=== PATIENT | female | born 1990 | race Caucasian/White ===

== ENCOUNTER 2016-07-28 06:51 | Inpatient (IN) | payer BC ==
[2016-07-28] MEDS ORDERED: Acetaminophen 325 MG Tab PO PRN (08:13)
[2016-07-28] MEDS ORDERED: fentaNYL 100 MCG/2 ML SDV IVPUSH PRN (08:13)
[2016-07-28] MEDS ORDERED: Sodium Chloride 0.9% 10 ML Syringe FLUSH PRN (08:13)
[2016-07-28] MEDS ORDERED: Ondansetron 4 MG Tab.DIS PO PRN (08:13)
[2016-07-28] MEDS ORDERED: Misoprostol 50 MCG (1/2 of 100 MCG) Tab ONE (08:18)
--- NOTE | 2016-07-28 08:32 | PCM.LDHP ---
L&D History of Present Illness - General Date of Service: 07/28/16 (induction) Admit Problem/Dx: Patient Status Order with Admit Dx/Problem 07/28/16 08:13 Patient Status [ADT] Routine Patient Status: Refer to Observation Admission Diagnosis/Problem: Reason for Admit: induction Nurse Unit Type: Labor and Delivery Admitting Physician: Erica Gomez Attending Physician: Erica Gomez Admission Diagnosis/Problem Admission Diagnosis/Problem Source of Information: Patient History Limitations: Reports: No limitations - History of Present Illness Timing/Duration: Reports: minutes: (5-6) Location, : Reports: Abdomen Quality: Reports: Pressure Severity: mild Improves with: Reports: None Worsens with: Reports: None - Related Data Allergies/Adverse Reactions: Allergies Allergy/AdvReac Type Severity Reaction Status Date / Time No Known Allergies Allergy Verified 07/28/16 07:17 Home Medications: Home Meds Vit W-Ca,Fe,FA(<1 mg) [ Vitamins] 1 each PO DAILY 07/28/16 [ History] Past Medical History - Past Health History Medical/Surgical History: Denies 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 Para: 3 LMP (Approximate): (patrick 07/27/16) Social & Family History - Family History Family Medical History: Noncontributory - Tobacco Use Smoking Status *Q: Never Smoker Second Hand Smoke Exposure: No - Caffeine Use Caffeine Use: Reports: None - Recreational Drug Use Recreational Drug Use: No H&P Review of Systems - Review of Systems: Review Of Systems: See Below General: Reports: no symptoms HEENT: Reports: no symptoms Pulmonary: Reports: no symptoms Cardiovascular: Reports: no symptoms Gastrointestinal: Reports: No symptoms Genitourinary: Reports: no symptoms Musculoskeletal: Reports: no symptoms Skin: Reports: no symptoms Psychiatric: Reports: no symptoms Neurological: Reports: no symptoms Hematologic/Lymphatic: Reports: no symptoms Immunologic: Reports: no symptoms L&D Exam - Exam Exam: See Below - Vital Signs Vital Signs: Last Vital Signs Temp 97.1 F 07/28/16 07:02 Pulse 93 07/28/16 07:02 Resp 18 07/28/16 07:02 BP 125/71 07/28/16 07:02 Pulse Ox 97 07/28/16 07:02 Weight: 220 lb - OB Specific Contraction Duration (sec): 50-70 Contraction Frequency (min): 2-6 Contraction Intensity: Mild movement: active heart tones: present heart tones per min: 140 Heart Rate (FHR) Variability: Moderate (6-25 bmp) Presentation: Vertex - Rutherford Score Rutherford Score Cervix Position: Posterior Rutherford Score Consistency: Soft Rutherford Score Effacement: 51-70% Rutherford Score Dilation: 1-2 cm Rutherford Score Infant's Station: -1 ,0 Rutherford Score Total: 7 - Exam General: alert, oriented HEENT: PERRLA, Hearing intact, Mucosa moist & pink, Pupils equal Neck: supple Lungs: Clear to auscultation, Normal respiratory effort Cardiovascular: regular rate Abdomen: soft Genitourinary: Normal external exam, Enlarged uterus Back Exam: normal inspection Extremities: normal inspection Skin: warm, dry, intact Neurological: cranial nerves intact, reflexes equal bilateral Psychiatric: alert, normal affect, normal mood - Patient Data Lab Results last 24 hrs: Laboratory Results - last 24 hr 07/28/16 07/28/16 07/28/16 Range/Units 07:51 07:51 07:51 WBC 8.1 (4.5-11.0) K/uL RBC 4.40 (3.30-5.50) M/uL Hgb 11.8 L (12.0-15.0) g/dL Hct 36.9 (36.0-48.0) % MCV 84 (80-98) fL MCH 27 (27-31) pg MCHC 32 (32-36) % Plt Count 207 (150-400) K/uL Add Manual Diff Yes Neutrophils % (Manual) 69 H (36-66) % Band Neutrophils % 1 L (5-11) % Lymphocytes % (Manual) 20 L (24-44) % Monocytes % (Manual) 10 H (2-6) % Urine Color Yellow Urine Appearance Cloudy Urine pH 5.0 (4.5-8.0) Ur Specific [place] 1.020 (1.008-1.030) Urine Protein Negative (NEGATIVE) mg/dL Urine Glucose (UA) Normal (NEGATIVE) mg/dL Urine Ketones Negative (NEGATIVE) mg/dL Urine Occult Blood Negative (NEGATIVE) Urine Nitrite Negative (NEGATIVE) Urine Bilirubin Negative (NEGATIVE) Urine Urobilinogen Normal (NORMAL) mg/dL Ur Leukocyte Esterase Small (NEGATIVE) Urine RBC 0-5 (0-5) Urine WBC 5-10 H (0-5) Ur Epithelial Cells Many Amorphous Sediment Many Urine Bacteria Many Urine Mucus Not seen Urine Opiates Screen Negative (NEGATIVE) Ur Oxycodone Screen Negative (NEGATIVE) Urine Methadone Screen Negative (NEGATIVE) Ur Propoxyphene Screen Negative (NEGATIVE) Ur Barbiturates Screen Negative (NEGATIVE) Ur Tricyclics Screen Negative (NEGATIVE) Ur Phencyclidine Scrn Negative (NEGATIVE) Ur Amphetamine Screen Negative (NEGATIVE) U Methamphetamines Scrn Negative (NEGATIVE) Urine MDMA Screen Negative (NEGATIVE) U Benzodiazepines Scrn Negative (NEGATIVE) U Cocaine Metab Screen Negative (NEGATIVE) U Marijuana (THC) Screen Negative (NEGATIVE) Result Diagrams: 07/28/16 07:51 - Problem List (1) Elective induction of labor planned SNOMED Code(s): 066208594 ICD Code: [id number] - Status: Acute Current Visit: Yes (2) Intrauterine SNOMED Code(s): 36233441 ICD Code: Z33.1 - STATE, INCIDENTAL Status: Acute Current Visit : Yes Problem List Initiated/Reviewed/Updated: Yes Orders Last 24hrs: Active Orders 24 hr Category Date Time Status Patient Status [ADT] Routine ADT 07/28/16 08:13 Active Bedrest Bathroom Privileges [RC] ASDIRECTED Care 07/28/16 08:13 Active Communication Order [RC] ASDIRECTED Care 07/28/16 08:13 Active Heart Tones [RC] PER UNIT ROUTINE Care 07/28/16 08:13 Active May Shower [RC] ASDIRECTED Care 07/28/16 08:13 Active Notify Provider Vital Signs [RC] PRN Care 07/28/16 08:13 Active Notify Provider [RC] PRN Care 07/28/16 08:13 Active Up ad Katya [RC] ASDIRECTED Care 07/28/16 08:13 Active Vital Signs [RC] PER UNIT ROUTINE Care 07/28/16 08:13 Active Acetaminophen [Tylenol] Med 07/28/16 08:13 Active 650 mg PO Q4H PRN Misoprostol [Cytotec] Med 07/28/16 09:00 Once 50 mcg VAG ONETIME ONE Ondansetron [Zofran ODT] Med 07/28/16 08:13 Active 4 mg PO Q4H PRN Oxytocin/Normal Saline [Pitocin in NS 20 Units/1,000 ML Med 07/28/16 10:00 Active ] 20 unit in 1,000 ml IV ONETIME Sodium Chloride 0.9% [Saline Flush] Med 07/28/16 08:13 Active 10 ml FLUSH ASDIRECTED PRN fentaNYL [Sublimaze] Med 07/28/16 08:13 Active 100 mcg IVPUSH Q1H PRN Saline Lock Insert [OM.PC] Routine Oth 07/28/16 08:13 Ordered Resuscitation Status Routine Resus Stat 07/28/16 08:13 Ordered Medication Orders Acetaminophen (Tylenol) 650 mg PO Q4H PRN PRN Reason: Pain (Mild 1-3) and fever Fentanyl (Sublimaze) 100 mcg IVPUSH Q1H PRN PRN Reason: Pain (moderate 4-6) Oxytocin/Sodium Chloride (Pitocin In Ns 20 Units/1,000 Ml) 20 unit in 1,000 mls @ 999 mls/hr IV ONETIME ONE PRN Reason: Protocol Stop: 07/28/16 11:00 Misoprostol (Cytotec) 50 mcg VAG ONETIME ONE Stop: 07/28/16 09:01 Ondansetron HCl (Zofran Odt) 4 mg PO Q4H PRN PRN Reason: Nausea/Vomiting Sodium Chloride (Saline Flush) 10 ml FLUSH ASDIRECTED PRN PRN Reason: Keep Vein Open Assessment/Plan Comment:: This 25 year old who is 40 1/7 weeks gestation based on LMP and US is here for planned induction of labor. Cat one strip CE:/1 Labs: ABO O+, HIV neg, Rubella Immune, GBS neg HGB 11.8, PLT 207 Plan Misoprostol at 0820, 50 MCG vaginally Monitor for active labor up and about after monitoring protocol
[2016-07-28] MEDS ORDERED: Naloxone 0.4 MG/ML SDV ONE (08:44)
[2016-07-28] MEDS ORDERED: Lidocaine 1% 50 ML MDV ONE (08:44)
[2016-07-28] MEDS ORDERED: Oxytocin 10 Units/1 ML SDV ONE (08:44)
[2016-07-28] MEDS ORDERED: Misoprostol 50 MCG (1/2 of 100 MCG) Tab VAG ONE (09:00)
[2016-07-28] MEDS ORDERED: Misoprostol 25 MCG (1/4 of 100 MCG) Tab VAG ONE (12:42)
[2016-07-28] MEDS: Misoprostol 25 MCG (1/4 of 100 MCG) Tab ONE ×2 (12:49→12:53)
--- NOTE | 2016-07-28 12:56 | PCM.PNLD ---
Labor Progress Note - VS & Meds Vital Signs: Last Vital Signs Temp 98.1 F 07/28/16 12:29 Pulse 80 07/28/16 12:29 Resp 18 07/28/16 12:29 BP 139/62 07/28/16 12:29 Pulse Ox 96 07/28/16 12:29 Active Medications: Current Medications Acetaminophen (Tylenol) 650 mg PO Q4H PRN PRN Reason: Pain (Mild 1-3) and fever Fentanyl (Sublimaze) 100 mcg IVPUSH Q1H PRN PRN Reason: Pain (moderate 4-6) Ondansetron HCl (Zofran Odt) 4 mg PO Q4H PRN PRN Reason: Nausea/Vomiting Sodium Chloride (Saline Flush) 10 ml FLUSH ASDIRECTED PRN PRN Reason: Keep Vein Open Discontinued Medications Oxytocin/Sodium Chloride (Pitocin In Ns 20 Units/1,000 Ml) 20 unit in 1,000 mls @ 999 mls/hr IV ONETIME ONE PRN Reason: Protocol Stop: 07/28/16 11:00 Lidocaine HCl (Xylocaine 1%) Confirm Administered Dose 100 ml .ROUTE .STK-MED ONE Stop: 07/28/16 08:45 Misoprostol (Cytotec) 50 mcg VAG ONETIME ONE Stop: 07/28/16 09:01 Last Admin: 07/28/16 08:46 Dose: 50 mcg Misoprostol (Cytotec) Confirm Administered Dose 50 mcg .ROUTE .STK-MED ONE Stop: 07/28/16 08:19 Last Admin: 07/28/16 08:46 Dose: Not Given Misoprostol (Cytotec) Confirm Administered Dose 25 mcg .ROUTE .STK-MED ONE Stop: 07/28/16 12:43 Last Admin: 07/28/16 12:53 Dose: 25 mcg Naloxone HCl (Narcan) Confirm Administered Dose 0.4 mg .ROUTE .STK-MED ONE Stop: 07/28/16 08:45 Oxytocin (Pitocin) Confirm Administered Dose 10 unit .ROUTE .STK-MED ONE Stop: 07/28/16 08:45 - Uterine Contractions Uterine Monitoring Mode: External [place] Contraction Frequency (min): 2-5 Contraction Duration (sec): 40-70 Contraction Intensity: Mild to Moderate Uterine Resting Tone: Soft - Monitoring Heart Rate (FHR) Baseline: 145 Heart Rate (FHR) Variability: Moderate (6-25 bmp) Accelerations: Present, 15x15 Decelerations: None Strip Review: Category I - Vaginal Exam Dilation (cm): 2.5 Effacement (Percent): 50 Station: 0 Cervical Position: Midposition Sterile Vaginal Exam Performed By: Erica Gomez Vaginal Exam Comment: placement of 25mcg cervadil - Labor Progress (Free Text) Labor Progress: is now osiel, repeat at 25 mcg dose monitor for active labor Plan for vaginal delivery
--- NOTE | 2016-07-28 17:42 | PCM.PNLD ---
Labor Progress Note - VS & Meds Vital Signs: Last Vital Signs Temp 98.5 F 07/28/16 16:45 Pulse 85 07/28/16 16:45 Resp 16 07/28/16 16:45 BP 128/80 07/28/16 16:45 Pulse Ox 97 07/28/16 16:45 Active Medications: Current Medications Acetaminophen (Tylenol) 650 mg PO Q4H PRN PRN Reason: Pain (Mild 1-3) and fever Fentanyl (Sublimaze) 100 mcg IVPUSH Q1H PRN PRN Reason: Pain (moderate 4-6) Ondansetron HCl (Zofran Odt) 4 mg PO Q4H PRN PRN Reason: Nausea/Vomiting Sodium Chloride (Saline Flush) 10 ml FLUSH ASDIRECTED PRN PRN Reason: Keep Vein Open Discontinued Medications Oxytocin/Sodium Chloride (Pitocin In Ns 20 Units/1,000 Ml) 20 unit in 1,000 mls @ 999 mls/hr IV ONETIME ONE PRN Reason: Protocol Stop: 07/28/16 11:00 Lidocaine HCl (Xylocaine 1%) Confirm Administered Dose 100 ml .ROUTE .STK-MED ONE Stop: 07/28/16 08:45 Misoprostol (Cytotec) 50 mcg VAG ONETIME ONE Stop: 07/28/16 09:01 Last Admin: 07/28/16 08:46 Dose: 50 mcg Misoprostol (Cytotec) Confirm Administered Dose 50 mcg .ROUTE .STK-MED ONE Stop: 07/28/16 08:19 Last Admin: 07/28/16 08:46 Dose: Not Given Misoprostol (Cytotec) Confirm Administered Dose 25 mcg .ROUTE .STK-MED ONE Stop: 07/28/16 12:43 Last Admin: 07/28/16 12:53 Dose: 25 mcg Naloxone HCl (Narcan) Confirm Administered Dose 0.4 mg .ROUTE .STK-MED ONE Stop: 07/28/16 08:45 Oxytocin (Pitocin) Confirm Administered Dose 10 unit .ROUTE .STK-MED ONE Stop: 07/28/16 08:45 - Uterine Contractions Uterine Monitoring Mode: External [place] Contraction Frequency (min): 2-3 Contraction Duration (sec): 60-90 Contraction Intensity: Mild to Moderate Uterine Resting Tone: Soft - Monitoring Heart Rate (FHR) Baseline: 145 Heart Rate (FHR) Variability: Moderate (6-25 bmp) Accelerations: Present, 15x15 Decelerations: None Strip Review: Category I - Vaginal Exam Dilation (cm): 3-4 Effacement (Percent): 75 Station: 0 Cervical Position: Midposition Sterile Vaginal Exam Performed By: Erica Gomez Vaginal Exam Comment: AROM clear fluid - Labor Progress (Free Text) Labor Progress: Contractions stronger AROM clear fluid Plan for vaginal delivery Pain management per mother's request
[2016-07-28] MEDS ORDERED: Ibuprofen 600 MG Tab PO PRN (21:15)
[2016-07-28] MEDS ORDERED: Benzocaine 20% Top Spray 56 GM Bottle TOP PRN (21:15)
[2016-07-28] MEDS ORDERED: Acetaminophen/Codeine 300-30 MG Tab PO PRN (21:15)
[2016-07-28] MEDS ORDERED: Witch Hazel Medicated Pads 100/Jar TOP PRN (21:15)
--- NOTE | 2016-07-28 21:27 | PCM.DEL ---
L & D Note - General Info Date of Service: 07/28/16 Mother's Due Date: 07/27/16 - Delivery Note Labor: induced by oxytocin Cervical Ripening Method: Misoprostil Delivery Outcome: Livebirth Delivery Method: Spontaneous Vaginal Delivery Delivery Mode: Spontaneous Presentation: Vertex Nuchal cord: none Anesthesia Type: None Amniotic Fluid Description: Clear Episiotomy Type: None Laceration: none Placenta: intact, spontaneous Cord: 3 vessels Estimated blood loss: 100 : bulb syringe, stimulated, warmed, blanket used Provider: Erica Gomez Score 1 min: 9 Score 5 min: 9 Score 10 min: 9 Second Stage Interventions: Reports: Encouragement Given, Pushing Effectively, Pushing, Left Side, Pushing, Stirrups/Leg Supports Delivery Comments (Free Text/Narrative):: This 25 year old who is 40 1/7 weeks gestation delivered a viable male over an intact perineum at 2053. Baby was placed on mother's abdomen where he is dried and stimulated. He cried spontaneously. Apgars of 9,9,9. Three vessel cord, delayed cord clamping was done. THe placenta was expressed spontaneously intact, haim. Active management of the third stage was used. no lacerations of the cervix, vagina, rectum or perineum were found. EBL 100cc Weight 8-7 Mother and baby to post and nursery instable condition Bottle feeding First stage 1627-8168 Second stage 3866-2810 Third stage Induction Criteria - Rutherford Score Rutherford Score Dilation: 1-2 cm Rutherford Score Effacement: 40-50% Rutherford Score 's Station: -1 ,0 Rutherford Score Consistency: Soft Rutherford Score Cervix Position: Posterior Rutherford Score Total: 6 Rutherford Score Presenting Part: Reports: Cephalic - Induction Gestational Age >/= 39 wks: Yes Estimated pelvis: Reports: Adequate Reassuring monitoring strip: Yes Absence of tachy systole: Yes - General Info Admission Dx/Problem (Free Text): Patient Status Order with Admit Dx/Problem 07/28/16 08:13 Patient Status [ADT] Routine Patient Status: Refer to Observation Admission Diagnosis/Problem: Reason for Admit: induction Nurse Unit Type: Labor and Delivery Admitting Physician: Erica Gomez Attending Physician: Erica Gomez Admission Diagnosis/Problem Admission Diagnosis/Problem Functional Status: Reports: pain controlled - Review of Systems General: Reports: no symptoms HEENT: Reports: no symptoms Pulmonary: Reports: no symptoms Cardiovascular: Reports: no symptoms Gastrointestinal: Reports: No symptoms Genitourinary: Reports: no symptoms Musculoskeletal: Reports: no symptoms Skin: Reports: no symptoms Neurological: Reports: no symptoms Psychiatric: Reports: no symptoms - Patient Data Vitals - most recent: Last Vital Signs Temp 98.7 F 07/28/16 19:10 Pulse 85 07/28/16 16:45 Resp 2 L 07/28/16 19:10 BP 136/70 07/28/16 19:10 Pulse Ox 97 07/28/16 16:45 Weight - most recent: 220 lb Lab Results last 24 hrs: Laboratory Results - last 24 hr 07/28/16 07/28/16 07/28/16 Range/Units 07:51 07:51 07:51 WBC 8.1 (4.5-11.0) K/uL RBC 4.40 (3.30-5.50) M/uL Hgb 11.8 L (12.0-15.0) g/dL Hct 36.9 (36.0-48.0) % MCV 84 (80-98) fL MCH 27 (27-31) pg MCHC 32 (32-36) % Plt Count 207 (150-400) K/uL Add Manual Diff Yes Neutrophils % (Manual) 69 H (36-66) % Band Neutrophils % 1 L (5-11) % Lymphocytes % (Manual) 20 L (24-44) % Monocytes % (Manual) 10 H (2-6) % Urine Color Yellow Urine Appearance Cloudy Urine pH 5.0 (4.5-8.0) Ur Specific [place] 1.020 (1.008-1.030) Urine Protein Negative (NEGATIVE) mg/dL Urine Glucose (UA) Normal (NEGATIVE) mg/dL Urine Ketones Negative (NEGATIVE) mg/dL Urine Occult Blood Negative (NEGATIVE) Urine Nitrite Negative (NEGATIVE) Urine Bilirubin Negative (NEGATIVE) Urine Urobilinogen Normal (NORMAL) mg/dL Ur Leukocyte Esterase Small (NEGATIVE) Urine RBC 0-5 (0-5) Urine WBC 5-10 H (0-5) Ur Epithelial Cells Many Amorphous Sediment Many Urine Bacteria Many Urine Mucus Not seen Urine Opiates Screen Negative (NEGATIVE) Ur Oxycodone Screen Negative (NEGATIVE) Urine Methadone Screen Negative (NEGATIVE) Ur Propoxyphene Screen Negative (NEGATIVE) Ur Barbiturates Screen Negative (NEGATIVE) Ur Tricyclics Screen Negative (NEGATIVE) Ur Phencyclidine Scrn Negative (NEGATIVE) Ur Amphetamine Screen Negative (NEGATIVE) U Methamphetamines Scrn Negative (NEGATIVE) Urine MDMA Screen Negative (NEGATIVE) U Benzodiazepines Scrn Negative (NEGATIVE) U Cocaine Metab Screen Negative (NEGATIVE) U Marijuana (THC) Screen Negative (NEGATIVE) Med Orders - Current: Current Medications Acetaminophen (Tylenol) 650 mg PO Q4H PRN PRN Reason: Pain (Mild 1-3) and fever Fentanyl (Sublimaze) 100 mcg IVPUSH Q1H PRN PRN Reason: Pain (moderate 4-6) Last Admin: 07/28/16 19:34 Dose: 100 mcg Ondansetron HCl (Zofran Odt) 4 mg PO Q4H PRN PRN Reason: Nausea/Vomiting Sodium Chloride (Saline Flush) 10 ml FLUSH ASDIRECTED PRN PRN Reason: Keep Vein Open Discontinued Medications Oxytocin/Sodium Chloride (Pitocin In Ns 20 Units/1,000 Ml) 20 unit in 1,000 mls @ 999 mls/hr IV ONETIME ONE PRN Reason: Protocol Stop: 07/28/16 11:00 Lidocaine HCl (Xylocaine 1%) Confirm Administered Dose 100 ml .ROUTE .STK-MED ONE Stop: 07/28/16 08:45 Misoprostol (Cytotec) 50 mcg VAG ONETIME ONE Stop: 07/28/16 09:01 Last Admin: 07/28/16 08:46 Dose: 50 mcg Misoprostol (Cytotec) Confirm Administered Dose 50 mcg .ROUTE .STK-MED ONE Stop: 07/28/16 08:19 Last Admin: 07/28/16 08:46 Dose: Not Given Misoprostol (Cytotec) Confirm Administered Dose 25 mcg .ROUTE .STK-MED ONE Stop: 07/28/16 12:43 Last Admin: 07/28/16 12:53 Dose: 25 mcg Naloxone HCl (Narcan) Confirm Administered Dose 0.4 mg .ROUTE .STK-MED ONE Stop: 07/28/16 08:45 Oxytocin (Pitocin) Confirm Administered Dose 10 unit .ROUTE .STK-MED ONE Stop: 07/28/16 08:45 Last Admin: 07/28/16 18:28 Dose: Not Given - Exam General: alert, oriented HEENT: Pupils equal, Pupils reactive, EOMI, Mucous membr. moist/pink Neck: supple Lungs: Clear to auscultation, Normal respiratory effort Cardiovascular: regular rate, regular rhythm Abdomen: bowel sounds present, soft, no tenderness, no distension (Female) Exam: Normal external exam, Normal speculum exam, Normal bimanual exam, Enlarged uterus, Vaginal bleeding Back Exam: normal inspection, full range of motion Extremities: no edema Skin: warm, dry, intact Wound/Incisions: healing well Neurological: no new focal deficit Psy/Mental Status: alert, normal affect, normal mood - Problem List & Annotations (1) Elective induction of labor planned SNOMED Code(s): 140185261 Code(s): [id number] - Status: Acute Current Visit: Yes (2) Intrauterine SNOMED Code(s): 15395495 Code(s): Z33.1 - STATE, INCIDENTAL Status: Acute Current Visit: Yes (3) Normal labor and delivery SNOMED Code(s): 72582891, 013003391 Code(s): O80 - ENCOUNTER FOR FULL-TERM UNCOMPLICATED DELIVERY Status: Acute Current Visit: Yes - Problem List Review Problem List Initiated/Reviewed/Updated: Yes - My Orders Last 24 Hours: My Active Orders 07/28/16 08:13 Bedrest Bathroom Privileges [RC] ASDIRECTED Communication Order [RC] ASDIRECTED Heart Tones [RC] PER UNIT ROUTINE May Shower [RC] ASDIRECTED Notify Provider Vital Signs [RC] PRN Notify Provider [RC] PRN Up ad Katya [RC] ASDIRECTED Vital Signs [RC] Q4H Acetaminophen [Tylenol] 650 mg PO Q4H PRN Ondansetron [Zofran ODT] 4 mg PO Q4H PRN Sodium Chloride 0.9% [Saline Flush] 10 ml FLUSH ASDIRECTED PRN fentaNYL [Sublimaze] 100 mcg IVPUSH Q1H PRN Saline Lock Insert [OM.PC] Routine Resuscitation Status Routine 07/28/16 21:15 Patient Status [ADT] Routine Vital Signs [RC] PFP Acetaminophen/Codeine [Tylenol with Codeine No.3 300MG/30MG] 1 tab PO Q4H PRN Benzocaine [[id number]-B-Nkfgvrb 20% [place]] See Dose Instructions TOP Q4H PRN Ibuprofen [Motrin] 600 mg PO Q6H PRN Witch Lisa [Tucks] 1 pad TOP ASDIRECTED PRN Assess Lochia [WOMSER] Per Unit Routine Assess Uterine Involution [WOMSER] Per Unit Routine 07/28/16 21:16 Ice Therapy [OM.PC] Per Unit Routine Perineal Care [OM.PC] Per Unit Routine Peripheral IV Discontinue [OM.PC] Routine Sitz Bath [OM.PC] Per Unit Routine 07/29/16 05:11 CBC WITH AUTO DIFF [HEME] AM 07/29/16 Breakfast Regular Diet [DIET] - Assessment Assessment:: 07/28/16 25 year old G4now P3 40 1/7 weeks, without complications, induced. Bottle baby - Plan Plan:: This 25 year old who is 40 1/7 weeks gestation based on LMP and US is here for planned induction of labor. Cat one strip CE:/-1 Labs: ABO O+, HIV neg, Rubella Immune, GBS neg HGB 11.8, PLT 207 Plan Misoprostol at 0820, 50 MCG vaginally Monitor for active labor up and about after monitoring protocol 07/28/16 Routine cares 24-48 hour stay
--- NOTE | 2016-07-29 07:55 | PCM.PNPP ---
- General Info Date of Service: 07/29/16 ( day one) Admission Dx/Problem (Free Text): Patient Status Order with Admit Dx/Problem 07/28/16 08:13 Patient Status [ADT] Routine Patient Status: Refer to Observation Admission Diagnosis/Problem: Reason for Admit: induction Nurse Unit Type: Labor and Delivery Admitting Physician: Erica Gomez Attending Physician: Erica Gomez Admission Diagnosis/Problem Admission Diagnosis/Problem Functional Status: Reports: pain controlled - Review of Systems General: Reports: no symptoms HEENT: Reports: no symptoms Pulmonary: Reports: no symptoms Cardiovascular: Reports: no symptoms Gastrointestinal: Reports: No symptoms, Other (not passing gas yet) Genitourinary: Reports: no symptoms Musculoskeletal: Reports: no symptoms Skin: Reports: no symptoms Neurological: Reports: no symptoms Psychiatric: Reports: no symptoms - General Info Date of Service: 07/29/16 - Patient Data Vital Signs - most recent: Last Vital Signs Temp 37.2 C 07/29/16 07:37 Pulse 76 07/29/16 07:37 Resp 16 07/29/16 07:37 BP 131/88 07/29/16 07:37 Pulse Ox 98 07/29/16 07:37 Weight - most recent: 99.79 kg Lab Results - last 24 hrs: Laboratory Results - last 24 hr 07/28/16 07/28/16 07/28/16 Range/Units 07:51 07:51 07:51 WBC 8.1 (4.5-11.0) K/uL RBC 4.40 (3.30-5.50) M/uL Hgb 11.8 L (12.0-15.0) g/dL Hct 36.9 (36.0-48.0) % MCV 84 (80-98) fL MCH 27 (27-31) pg MCHC 32 (32-36) % Plt Count 207 (150-400) K/uL Neut % (Auto) (36-66) % Lymph % (Auto) (24-44) % [place] % (Auto) (2-6) % Eos % (Auto) (2-4) % Baso % (Auto) (0-1) % Add Manual Diff Yes Neutrophils % (Manual) 69 H (36-66) % Band Neutrophils % 1 L (5-11) % Lymphocytes % (Manual) 20 L (24-44) % Monocytes % (Manual) 10 H (2-6) % Urine Color Yellow Urine Appearance Cloudy Urine pH 5.0 (4.5-8.0) Ur Specific [place] 1.020 (1.008-1.030) Urine Protein Negative (NEGATIVE) mg/dL Urine Glucose (UA) Normal (NEGATIVE) mg/dL Urine Ketones Negative (NEGATIVE) mg/dL Urine Occult Blood Negative (NEGATIVE) Urine Nitrite Negative (NEGATIVE) Urine Bilirubin Negative (NEGATIVE) Urine Urobilinogen Normal (NORMAL) mg/dL Ur Leukocyte Esterase Small (NEGATIVE) Urine RBC 0-5 (0-5) Urine WBC 5-10 H (0-5) Ur Epithelial Cells Many Amorphous Sediment Many Urine Bacteria Many Urine Mucus Not seen Urine Opiates Screen Negative (NEGATIVE) Ur Oxycodone Screen Negative (NEGATIVE) Urine Methadone Screen Negative (NEGATIVE) Ur Propoxyphene Screen Negative (NEGATIVE) Ur Barbiturates Screen Negative (NEGATIVE) Ur Tricyclics Screen Negative (NEGATIVE) Ur Phencyclidine Scrn Negative (NEGATIVE) Ur Amphetamine Screen Negative (NEGATIVE) U Methamphetamines Scrn Negative (NEGATIVE) Urine MDMA Screen Negative (NEGATIVE) U Benzodiazepines Scrn Negative (NEGATIVE) U Cocaine Metab Screen Negative (NEGATIVE) U Marijuana (THC) Screen Negative (NEGATIVE) 07/29/16 Range/Units 05:00 WBC 11.9 H (4.5-11.0) K/uL RBC 4.16 (3.30-5.50) M/uL Hgb 11.3 L (12.0-15.0) g/dL Hct 34.8 L (36.0-48.0) % MCV 84 (80-98) fL MCH 27 (27-31) pg MCHC 33 (32-36) % Plt Count 196 (150-400) K/uL Neut % (Auto) 75 H (36-66) % Lymph % (Auto) 15 L (24-44) % [place] % (Auto) 10 H (2-6) % Eos % (Auto) 0 L (2-4) % Baso % (Auto) 0 (0-1) % Add Manual Diff Neutrophils % (Manual) (36-66) % Band Neutrophils % (5-11) % Lymphocytes % (Manual) (24-44) % Monocytes % (Manual) (2-6) % Urine Color Urine Appearance Urine pH (4.5-8.0) Ur Specific [place] (1.008-1.030) Urine Protein (NEGATIVE) mg/dL Urine Glucose (UA) (NEGATIVE) mg/dL Urine Ketones (NEGATIVE) mg/dL Urine Occult Blood (NEGATIVE) Urine Nitrite (NEGATIVE) Urine Bilirubin (NEGATIVE) Urine Urobilinogen (NORMAL) mg/dL Ur Leukocyte Esterase (NEGATIVE) Urine RBC (0-5) Urine WBC (0-5) Ur Epithelial Cells Amorphous Sediment Urine Bacteria Urine Mucus Urine Opiates Screen (NEGATIVE) Ur Oxycodone Screen (NEGATIVE) Urine Methadone Screen (NEGATIVE) Ur Propoxyphene Screen (NEGATIVE) Ur Barbiturates Screen (NEGATIVE) Ur Tricyclics Screen (NEGATIVE) Ur Phencyclidine Scrn (NEGATIVE) Ur Amphetamine Screen (NEGATIVE) U Methamphetamines Scrn (NEGATIVE) Urine MDMA Screen (NEGATIVE) U Benzodiazepines Scrn (NEGATIVE) U Cocaine Metab Screen (NEGATIVE) U Marijuana (THC) Screen (NEGATIVE) Med Orders - Current: Current Medications Acetaminophen (Tylenol) 650 mg PO Q4H PRN PRN Reason: Pain (Mild 1-3) and fever Acetaminophen/Codeine Phosphate (Tylenol With Codeine No.3 300mg/30mg) 1 tab PO Q4H PRN PRN Reason: Pain (moderate 4-6) Benzocaine (Kdbd-M-Qvpztgo 20% [place]) 0 gm TOP Q4H PRN PRN Reason: Perineal Comfort Measure Fentanyl (Sublimaze) 100 mcg IVPUSH Q1H PRN PRN Reason: Pain (moderate 4-6) Last Admin: 07/28/16 19:34 Dose: 100 mcg Ibuprofen (Motrin) 600 mg PO Q6H PRN PRN Reason: mild pain or fever Ondansetron HCl (Zofran Odt) 4 mg PO Q4H PRN PRN Reason: Nausea/Vomiting Sodium Chloride (Saline Flush) 10 ml FLUSH ASDIRECTED PRN PRN Reason: Keep Vein Open Witrama Gonzalez (Tucks) 1 pad TOP ASDIRECTED PRN PRN Reason: Hemorrhoids Discontinued Medications Oxytocin/Sodium Chloride (Pitocin In Ns 20 Units/1,000 Ml) 20 unit in 1,000 mls @ 999 mls/hr IV ONETIME ONE PRN Reason: Protocol Stop: 07/28/16 11:00 Last Admin: 07/28/16 21:07 Dose: 999 mls/hr, 999 mls/hr Lidocaine HCl (Xylocaine 1%) Confirm Administered Dose 100 ml .ROUTE .STK-MED ONE Stop: 07/28/16 08:45 Last Admin: 07/29/16 00:36 Dose: Not Given Misoprostol (Cytotec) 50 mcg VAG ONETIME ONE Stop: 07/28/16 09:01 Last Admin: 07/28/16 08:46 Dose: 50 mcg Misoprostol (Cytotec) Confirm Administered Dose 50 mcg .ROUTE .STK-MED ONE Stop: 07/28/16 08:19 Last Admin: 07/28/16 08:46 Dose: Not Given Misoprostol (Cytotec) Confirm Administered Dose 25 mcg .ROUTE .STK-MED ONE Stop: 07/28/16 12:43 Last Admin: 07/28/16 12:53 Dose: 25 mcg Naloxone HCl (Narcan) Confirm Administered Dose 0.4 mg .ROUTE .STK-MED ONE Stop: 07/28/16 08:45 Last Admin: 07/29/16 00:36 Dose: Not Given Oxytocin (Pitocin) Confirm Administered Dose 10 unit .ROUTE .STK-MED ONE Stop: 07/28/16 08:45 Last Admin: 07/28/16 18:28 Dose: Not Given - Infant Interaction Disposition, : [place] at Bedside Infant Interaction: Holding Feeding: Bottle Fed Support Person: - Recovery Exam Fundal Tone: Firm Fundal Level: At Umbilicus Fundal Placement: Midline Lochia Amount: Moderate Lochia Color: Rubra/Red Perineum Description: Intact, Minimal Bruising/Swelling Episiotomy/Laceration: None Bladder Status: Voiding Urinary Elimination: Voided - Exam General: alert, oriented HEENT: Pupils equal Neck: supple Lungs: Clear to auscultation, Normal respiratory effort Cardiovascular: regular rate, regular rhythm Abdomen: bowel sounds present, soft, no tenderness, no distension, other (not passing prasad yet) Extremities: no edema Skin: warm, dry, intact Neurological: no new focal deficit Psy/Mental Status: alert, normal affect, normal mood - Problem List & Annotations (1) Normal vaginal delivery SNOMED Code(s): 03627476 Code(s): O80 - ENCOUNTER FOR FULL-TERM UNCOMPLICATED DELIVERY Status: Acute Current Visit: Yes (2) SNOMED Code(s): 92822445 Code(s): Z33.1 - STATE, INCIDENTAL Status: Acute Current Visit: Yes Qualifiers: Weeks of gestation: 40 weeks Qualified Code(s): Z3A.40 - 40 weeks gestation of - Problem List Review Problem List Initiated/Reviewed/Updated: Yes - Assessment Assessment:: 07/28/16 25 year old G4now P3 40 1/7 weeks, without complications, induced. Bottle baby 07/29/2016 Day One Normal Vaginal Delivery Bottlefeeding Pain controlled with oral pain medication Bleeding decreasing Bowel Sounds active-but patient not passing gas yet Has had occasional low grade fevers - Plan Plan:: This 25 year old who is 40 1/7 weeks gestation based on LMP and US is here for planned induction of labor. Cat one strip CE:/-1 Labs: ABO O+, HIV neg, Rubella Immune, GBS neg HGB 11.8, PLT 207 Plan Misoprostol at 0820, 50 MCG vaginally Monitor for active labor up and about after monitoring protocol 07/28/16 Routine cares 24-48 hour stay 07/29/2016 Routine Cares Will continue to monitor temperature Encourage patient to ambulate Plan for discharge at 24-48 hrs
[2016-07-29 15:42] VITALS: BP 125/80
--- NOTE | 2016-07-29 17:38 | PCM.PNPP ---
- General Info Date of Service: 07/29/16 Admission Dx/Problem (Free Text): Patient Status Order with Admit Dx/Problem 07/28/16 08:13 Patient Status [ADT] Routine Patient Status: Refer to Observation Admission Diagnosis/Problem: Reason for Admit: induction Nurse Unit Type: Labor and Delivery Admitting Physician: Erica Gomez Attending Physician: Erica Gomez Admission Diagnosis/Problem Admission Diagnosis/Problem Functional Status: Reports: pain controlled - Review of Systems General: Reports: no symptoms HEENT: Reports: no symptoms Pulmonary: Reports: no symptoms Cardiovascular: Reports: no symptoms Gastrointestinal: Reports: No symptoms Genitourinary: Reports: no symptoms Musculoskeletal: Reports: no symptoms Skin: Reports: no symptoms Neurological: Reports: no symptoms Psychiatric: Reports: no symptoms - General Info Date of Service: 07/29/16 - Patient Data Vital Signs - most recent: Last Vital Signs Temp 37.2 C 07/29/16 15:41 Pulse 94 07/29/16 15:41 Resp 16 07/29/16 15:41 BP 125/80 07/29/16 15:41 Pulse Ox 97 07/29/16 15:41 Weight - most recent: 99.79 kg Lab Results - last 24 hrs: Laboratory Results - last 24 hr 07/29/16 Range/Units 05:00 WBC 11.9 H (4.5-11.0) K/uL RBC 4.16 (3.30-5.50) M/uL Hgb 11.3 L (12.0-15.0) g/dL Hct 34.8 L (36.0-48.0) % MCV 84 (80-98) fL MCH 27 (27-31) pg MCHC 33 (32-36) % Plt Count 196 (150-400) K/uL Neut % (Auto) 75 H (36-66) % Lymph % (Auto) 15 L (24-44) % [place] % (Auto) 10 H (2-6) % Eos % (Auto) 0 L (2-4) % Baso % (Auto) 0 (0-1) % Med Orders - Current: Current Medications Acetaminophen (Tylenol) 650 mg PO Q4H PRN PRN Reason: Pain (Mild 1-3) and fever Acetaminophen/Codeine Phosphate (Tylenol With Codeine No.3 300mg/30mg) 1 tab PO Q4H PRN PRN Reason: Pain (moderate 4-6) Benzocaine (Xuhv-M-Zsacnaz 20% [place]) 0 gm TOP Q4H PRN PRN Reason: Perineal Comfort Measure Ibuprofen (Motrin) 600 mg PO Q6H PRN PRN Reason: mild pain or fever Ondansetron HCl (Zofran Odt) 4 mg PO Q4H PRN PRN Reason: Nausea/Vomiting Sodium Chloride (Saline Flush) 10 ml FLUSH ASDIRECTED PRN PRN Reason: Keep Vein Open Witch Lisa (Tucks) 1 pad TOP ASDIRECTED PRN PRN Reason: Hemorrhoids Discontinued Medications Fentanyl (Sublimaze) 100 mcg IVPUSH Q1H PRN PRN Reason: Pain (moderate 4-6) Last Admin: 07/28/16 19:34 Dose: 100 mcg Oxytocin/Sodium Chloride (Pitocin In Ns 20 Units/1,000 Ml) 20 unit in 1,000 mls @ 999 mls/hr IV ONETIME ONE PRN Reason: Protocol Stop: 07/28/16 11:00 Last Admin: 07/28/16 21:07 Dose: 999 mls/hr, 999 mls/hr Lidocaine HCl (Xylocaine 1%) Confirm Administered Dose 100 ml .ROUTE .STK-MED ONE Stop: 07/28/16 08:45 Last Admin: 07/29/16 00:36 Dose: Not Given Misoprostol (Cytotec) 50 mcg VAG ONETIME ONE Stop: 07/28/16 09:01 Last Admin: 07/28/16 08:46 Dose: 50 mcg Misoprostol (Cytotec) Confirm Administered Dose 50 mcg .ROUTE .STK-MED ONE Stop: 07/28/16 08:19 Last Admin: 07/28/16 08:46 Dose: Not Given Misoprostol (Cytotec) Confirm Administered Dose 25 mcg .ROUTE .STK-MED ONE Stop: 07/28/16 12:43 Last Admin: 07/28/16 12:53 Dose: 25 mcg Misoprostol (Cytotec) 25 mcg VAG ONETIME ONE Stop: 07/28/16 12:43 Last Admin: 07/29/16 10:25 Dose: Not Given Naloxone HCl (Narcan) Confirm Administered Dose 0.4 mg .ROUTE .STK-MED ONE Stop: 07/28/16 08:45 Last Admin: 07/29/16 00:36 Dose: Not Given Oxytocin (Pitocin) Confirm Administered Dose 10 unit .ROUTE .STK-MED ONE Stop: 07/28/16 08:45 Last Admin: 07/28/16 18:28 Dose: Not Given - Infant Interaction Disposition, : [place] at Bedside Interaction: Holding Feeding: Bottle Fed Support Person: - Recovery Exam Fundal Tone: Firm Fundal Level: 1 Fingerbreadths Below Umbilicus Fundal Placement: Midline Lochia Amount: Small Lochia Color: Rubra/Red Perineum Description: Intact, Minimal Bruising/Swelling Episiotomy/Laceration: None Bladder Status: Voiding Urinary Elimination: Voided - Exam General: alert, oriented HEENT: Pupils equal Neck: supple Lungs: Clear to auscultation, Normal respiratory effort Cardiovascular: regular rate, regular rhythm Abdomen: bowel sounds present, soft, no tenderness, no distension Extremities: no edema Skin: warm, dry, intact Neurological: no new focal deficit Psy/Mental Status: alert, normal affect, normal mood - Problem List & Annotations (1) Normal vaginal delivery SNOMED Code(s): 43923076 Code(s): O80 - ENCOUNTER FOR FULL-TERM UNCOMPLICATED DELIVERY Status: Acute Current Visit: Yes (2) SNOMED Code(s): 57570571 Code(s): Z33.1 - STATE, INCIDENTAL Status: Acute Current Visit: Yes Qualifiers: Weeks of gestation: 40 weeks Qualified Code(s): Z3A.40 - 40 weeks gestation of - Problem List Review Problem List Initiated/Reviewed/Updated: Yes - Assessment Assessment:: 07/28/16 25 year old G4now P3 40 1/7 weeks, without complications, induced. Bottle baby 07/29/2016 Day One Normal Vaginal Delivery Bottlefeeding Pain controlled with oral pain medication Bleeding decreasing Bowel Sounds active-but patient not passing gas yet Has had occasional low grade fevers 07/29/2016 @ 1730 Normal vaginal delivery day one Bottlefeeding Patient request 24 hour discharge Will see Erica or partners at 6wks - Plan Plan:: This 25 year old who is 40 1/7 weeks gestation based on LMP and US is here for planned induction of labor. Cat one strip CE:/-1 Labs: ABO O+, HIV neg, Rubella Immune, GBS neg HGB 11.8, PLT 207 Plan Misoprostol at 0820, 50 MCG vaginally Monitor for active labor up and about after monitoring protocol 07/28/16 Routine cares 24-48 hour stay 07/29/2016 Routine Cares Will continue to monitor temperature Encourage patient to ambulate Plan for discharge at 24-48 hrs 07/29/2016 @ 1730 Patient requesting 24 hour discharge-see assessment notes
== END 2016-07-29 21:45 | disposition home or self-care (01) | DRG 560 ==
LOC: JP.OB 06:51 → JP.MS 20:54 → JP.OB 20:54 → OBSVTOIN 20:54
PROVIDERS: ADMIT Nurse Practitioner Family; ATTEND Nurse Practitioner Family
PROC: 10E0XZZ Delivery of Products of Conception, External Approach (ICD-10-PCS; principal; 2016-07-28)
PROC: 10907ZC Drainage of Amniotic Fluid, Therapeutic from Products of Conception, Via Natural or Artificial Opening (ICD-10-PCS; principal; 2016-07-28)
PROC: 3E0P7GC Introduction of Other Therapeutic Substance into Female Reproductive, Via Natural or Artificial Opening (ICD-10-PCS; principal; 2016-07-28)
PROC: 3E033VJ Introduction of Other Hormone into Peripheral Vein, Percutaneous Approach (ICD-10-PCS; principal; 2016-07-28)
DX: O80 Encounter for full-term uncomplicated delivery (principal); Z3A.40 40 weeks gestation of pregnancy; Z37.0 Single live birth
CPT/HCPCS: 36415; 80305; 81001; 85025; A9270-GY; J2590; J3010

== ENCOUNTER 2018-05-28 06:52 | Observation (INO) | payer BC ==
[2018-05-28] MEDS ORDERED: Misoprostol 50 MCG (1/2 of 100 MCG) Tab VAG ONE ×2 (08:24→12:29)
[2018-05-28] MEDS ORDERED: Misoprostol 50 MCG (1/2 of 100 MCG) Tab ONE (08:25)
[2018-05-28] MEDS ORDERED: Ondansetron 4 MG/2 ML SDV IV PRN (09:05)
[2018-05-28] MEDS ORDERED: fentaNYL 100 MCG/2 ML SDV IVPUSH PRN (09:05)
[2018-05-28] MEDS ORDERED: Sodium Chloride 0.9% 10 ML Syringe FLUSH PRN (09:05)
[2018-05-28] MEDS ORDERED: Acetaminophen 325 MG Tab PO PRN (09:05)
--- NOTE | 2018-05-28 09:21 | PCM.LDHP ---
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: - Infectious Disease History Infectious Disease History: Reports: Chicken Pox Social & Family History - Family History Family Medical History: Noncontributory - Tobacco Use Smoking Status *Q: Never Smoker Second Hand Smoke Exposure: No - Caffeine Use Caffeine Use: Reports: Soda - Recreational Drug Use Recreational Drug Use: No H&P Review of Systems - Review of Systems: Review Of Systems: See Below General: Reports: No Symptoms HEENT: Reports: No Symptoms Pulmonary: Reports: No Symptoms Cardiovascular: Reports: No Symptoms Gastrointestinal: Reports: No Symptoms Genitourinary: Reports: No Symptoms Musculoskeletal: Reports: No Symptoms Skin: Reports: No Symptoms Psychiatric: Reports: No Symptoms Neurological: Reports: No Symptoms Hematologic/Lymphatic: Reports: No Symptoms Immunologic: Reports: No Symptoms L&D Exam - Exam Exam: See Below - Vital Signs Vital Signs: Last Vital Signs Temp 37.0 C 05/28/18 07:00 Pulse 76 05/28/18 08:45 Resp 16 05/28/18 08:45 BP 122/66 05/28/18 08:45 Pulse Ox 96 05/28/18 08:30 Weight: 92.986 kg - OB Specific Contraction Duration (sec): 40-60 Contraction Frequency (min): 0 Contraction Intensity: Mild Heart Rate (FHR) Variability: Moderate (6-25 bmp) Presentation: Vertex - Rutherford Score Rutherford Score Cervix Position: Midposition Rutherford Score Consistency: Medium Rutherford Score Effacement: 31-50% Rutherford Score Dilation: 1-2 cm Rutherford Score 's Station: -3 Rutherford Score Total: 4 - Exam General: Alert, Oriented HEENT: PERRLA, Conjunctiva Clear, EACs Clear, EOMI, Hearing Intact, Mucosa Moist & [place], Nares Patent, Normal Nasal Septum, Posterior Pharynx Clear, Pupils Equal, Pupils Reactive, TMs Clear Neck: Supple, Trachea Midline Lungs: Clear to Auscultation, Normal Respiratory Effort Cardiovascular: Regular Rate, Regular Rhythm GI/Abdominal Exam: Normal Bowel Sounds, Soft, Non-Tender, No Organomegaly, No Distention, No Abnormal Bruit, No Mass, Pelvis Stable Rectal Exam: Normal Exam, Normal Rectal Tone Genitourinary: Normal external exam, Normal bimanual exam, Normal speculum exam Back Exam: Normal Inspection, Full Range of Motion Extremities: Normal Inspection, Normal Range of Motion, Non-Tender, No Pedal Edema, Normal Capillary Refill Skin: Warm, Dry, Intact Neurological: Cranial Nerves Intact, Reflexes Equal Bilateral Psychiatric: Alert, Normal Affect, Normal Mood - Patient Data Lab Results Last 24 hrs: Laboratory Results - last 24 hr 05/28/18 05/28/18 05/28/18 Range/Units 07:01 07:23 07:27 WBC 8.5 (4.5-11.0) K/uL RBC 4.22 (3.30-5.50) M/uL Hgb 11.3 L (12.0-15.0) g/dL Hct 35.6 L (36.0-48.0) % MCV 84 (80-98) fL MCH 27 (27-31) pg MCHC 32 (32-36) % Plt Count 204 (150-400) K/uL Add Manual Diff Yes Neutrophils % (Manual) 63 (36-66) % Band Neutrophils % 3 L (5-11) % Lymphocytes % (Manual) 24 (24-44) % Monocytes % (Manual) 10 H (2-6) % Urine Color Yellow Urine Appearance Slightly cloudy Urine pH 5.0 (4.5-8.0) Ur Specific [place] 1.020 (1.008-1.030) Urine Protein Negative (NEGATIVE) mg/dL Urine Glucose (UA) Normal (NEGATIVE) mg/dL Urine Ketones Negative (NEGATIVE) mg/dL Urine Occult Blood Negative (NEGATIVE) Urine Nitrite Negative (NEGATIVE) Urine Bilirubin Negative (NEGATIVE) Urine Urobilinogen Normal (NORMAL) mg/dL Ur Leukocyte Esterase Negative (NEGATIVE) Urine RBC Not seen (0-5) Urine WBC 0-5 (0-5) Ur Epithelial Cells Moderate Amorphous Sediment Not seen Urine Bacteria Moderate Urine Mucus Many Urine Opiates Screen Negative (NEGATIVE) Ur Oxycodone Screen Negative (NEGATIVE) Urine Methadone Screen Negative (NEGATIVE) Ur Propoxyphene Screen Negative (NEGATIVE) Ur Barbiturates Screen Negative (NEGATIVE) Ur Tricyclics Screen Negative (NEGATIVE) Ur Phencyclidine Scrn Negative (NEGATIVE) Ur Amphetamine Screen Negative (NEGATIVE) U Methamphetamines Scrn Negative (NEGATIVE) Urine MDMA Screen Negative (NEGATIVE) U Benzodiazepines Scrn Negative (NEGATIVE) U Cocaine Metab Screen Negative (NEGATIVE) U Marijuana (THC) Screen Negative (NEGATIVE) Result Diagrams: 05/28/18 07:01 - Problem List (1) Elective induction of labor planned SNOMED Code(s): 626735754 ICD Code: [id number] - Status: Acute Current Visit: No (2) SNOMED Code(s): 54472078 ICD Code: Z33.1 - STATE, INCIDENTAL Status: Acute Current Visit : No Qualifiers: Problem List Initiated/Reviewed/Updated: Yes Orders Last 24hrs: Active Orders 24 hr Category Date Time Status Patient Status [ADT] Routine ADT 05/28/18 09:05 Ordered Ambulate [RC] PER UNIT ROUTINE Care 05/28/18 09:05 Ordered Communication Order [RC] ASDIRECTED Care 05/28/18 09:05 Ordered Heart Tones [RC] PER UNIT ROUTINE Care 05/28/18 09:05 Ordered Non Stress Test [RC] Click to Edit Care 05/28/18 09:05 Ordered May Shower [RC] ASDIRECTED Care 05/28/18 09:05 Ordered Notify Provider Vital Signs [RC] PRN Care 05/28/18 09:05 Ordered Notify Provider [RC] PRN Care 05/28/18 09:05 Ordered Up ad Katya [RC] ASDIRECTED Care 05/28/18 09:05 Ordered VTE/DVT Education [RC] Click to Edit Care 05/28/18 09:07 Ordered Vital Signs [RC] PER UNIT ROUTINE Care 05/28/18 09:05 Ordered Acetaminophen [Tylenol] Med 05/28/18 09:05 Ordered 650 mg PO Q4H PRN Ondansetron [Zofran] Med 05/28/18 09:05 Ordered 4 mg IV Q4H PRN Oxytocin/Normal Saline [Pitocin in NS 20 Units/1,000 ML Med 05/28/18 09:08 Ordered ] 20 unit in 1,000 ml IV ONETIME Oxytocin/Normal Saline [Pitocin in NS 20 Units/1,000 ML Med 05/28/18 09:15 Ordered ] 20 unit in 1,000 ml IV TITRATE Sodium Chloride 0.9% [Saline Flush] Med 05/28/18 09:05 Ordered 10 ml FLUSH ASDIRECTED PRN fentaNYL [Sublimaze] Med 05/28/18 09:05 Ordered 100 mcg IVPUSH Q1H PRN DVT/VTE Prophylaxis Reflex [OM.PC] Routine Oth 05/28/18 09:05 Ordered Saline Lock Insert [OM.PC] Routine Oth 05/28/18 09:05 Ordered Resuscitation Status Routine Resus Stat 05/28/18 09:05 Ordered Medication Orders Acetaminophen (Tylenol) 650 mg PO Q4H PRN PRN Reason: Pain (Mild 1-3) and fever Fentanyl (Sublimaze) 100 mcg IVPUSH Q1H PRN PRN Reason: Pain (moderate 4-6) Oxytocin/Sodium Chloride (Pitocin In Ns 20 Units/1,000 Ml) 20 unit in 1,000 mls @ 6 mls/hr IV TITRATE [place]; Protocol Oxytocin/Sodium Chloride (Pitocin In Ns 20 Units/1,000 Ml) 20 unit in 1,000 mls @ 2,997 mls/hr IV ONETIME ONE; Protocol Stop: 05/28/18 09:28 Ondansetron HCl (Zofran) 4 mg IV Q4H PRN PRN Reason: Nausea/Vomiting Sodium Chloride (Saline Flush) 10 ml FLUSH ASDIRECTED PRN PRN Reason: Keep Vein Open Assessment/Plan Comment:: 05/28/2017 27 yo here at 40 0/7 gestational weeks for an elective induction of labor per patient request on 05/28/2018 SVE-1/50/-3 Cytotec 50 [place]-4 FHTs category one Contractions mild and irregular Plan- Monitor for active labor Monitor heart tones Patient may eat regular diet Up ad katya Pain medication per patient request Call if patient SROM or wanting pain medication Plan and anticipate a vaginal delivery
[2018-05-28] MEDS ORDERED: Misoprostol 25 MCG (1/4 of 100 MCG) Tab ONE (12:31)
--- NOTE | 2018-05-28 12:54 | PCM.PNLD ---
Labor Progress Note - VS & Meds Vital Signs: Last Vital Signs Temp 36.2 C 05/28/18 10:30 Pulse 102 H 05/28/18 10:30 Resp 16 05/28/18 10:30 BP 135/75 05/28/18 10:30 Pulse Ox 97 05/28/18 10:30 Active Medications: Current Medications Acetaminophen (Tylenol) 650 mg PO Q4H PRN PRN Reason: Pain (Mild 1-3) and fever Fentanyl (Sublimaze) 100 mcg IVPUSH Q1H PRN PRN Reason: Pain (moderate 4-6) Oxytocin/Sodium Chloride (Pitocin In Ns 20 Units/1,000 Ml) 20 unit in 1,000 mls @ 6 mls/hr IV TITRATE [place]; Protocol Oxytocin/Sodium Chloride (Pitocin In Ns 20 Units/1,000 Ml) 20 unit in 1,000 mls @ 2,997 mls/hr IV ONETIME ONE; Protocol Stop: 05/28/18 09:28 Ondansetron HCl (Zofran) 4 mg IV Q4H PRN PRN Reason: Nausea/Vomiting Sodium Chloride (Saline Flush) 10 ml FLUSH ASDIRECTED PRN PRN Reason: Keep Vein Open Discontinued Medications Misoprostol (Cytotec) 50 mcg VAG ONETIME ONE Stop: 05/28/18 08:25 Last Admin: 05/28/18 08:28 Dose: 50 mcg Misoprostol (Cytotec) Confirm Administered Dose 50 mcg .ROUTE .STK-MED ONE Stop: 05/28/18 08:26 Last Admin: 05/28/18 08:47 Dose: Not Given Misoprostol (Cytotec) 25 mcg VAG ONETIME ONE Stop: 05/28/18 12:30 Misoprostol (Cytotec) Confirm Administered Dose 25 mcg .ROUTE .STK-MED ONE Stop: 05/28/18 12:32 - Uterine Contractions Uterine Monitoring Mode: External [place] Contraction Frequency (min): 4-6 Contraction Duration (sec): 30-80 Contraction Intensity: Mild Uterine Resting Tone: Soft - Monitoring Heart Rate (FHR) Variability: Moderate (6-25 bmp) - Vaginal Exam Dilation (cm): 1 Effacement (Percent): 50 Station: [place] Cervical Position: Midposition Sterile Vaginal Exam Performed By: Caity Banks - Labor Progress (Free Text) Labor Progress: 05/28/2018 Patient remains comfortable SVE-unchanged Cytotec placed vaginally again FHTs category one Plan- Continue to monitor for labor Continue to monitor FHTs Patient may eat regular diet Patient may bath and up ad ricky Plan and anticipate a vaginal delivery
--- NOTE | 2018-05-28 16:04 | PCM.PNLD ---
Labor Progress Note - VS & Meds Vital Signs: Last Vital Signs Temp 36.3 C 05/28/18 14:30 Pulse 79 05/28/18 14:30 Resp 18 05/28/18 14:30 BP 125/60 05/28/18 14:30 Pulse Ox 96 05/28/18 14:30 Active Medications: Current Medications Acetaminophen (Tylenol) 650 mg PO Q4H PRN PRN Reason: Pain (Mild 1-3) and fever Fentanyl (Sublimaze) 100 mcg IVPUSH Q1H PRN PRN Reason: Pain (moderate 4-6) Oxytocin/Sodium Chloride (Pitocin In Ns 20 Units/1,000 Ml) 20 unit in 1,000 mls @ 6 mls/hr IV TITRATE EVARISTO; Protocol Oxytocin/Sodium Chloride (Pitocin In Ns 20 Units/1,000 Ml) 20 unit in 1,000 mls @ 999 mls/hr IV ONETIME ONE; Protocol Stop: 05/28/18 19:00 Ondansetron HCl (Zofran) 4 mg IV Q4H PRN PRN Reason: Nausea/Vomiting Sodium Chloride (Saline Flush) 10 ml FLUSH ASDIRECTED PRN PRN Reason: Keep Vein Open Discontinued Medications Misoprostol (Cytotec) 50 mcg VAG ONETIME ONE Stop: 05/28/18 08:25 Last Admin: 05/28/18 08:28 Dose: 50 mcg Misoprostol (Cytotec) Confirm Administered Dose 50 mcg .ROUTE .STK-MED ONE Stop: 05/28/18 08:26 Last Admin: 05/28/18 08:47 Dose: Not Given Misoprostol (Cytotec) 25 mcg VAG ONETIME ONE Stop: 05/28/18 12:30 Last Admin: 05/28/18 12:40 Dose: 25 mcg Misoprostol (Cytotec) Confirm Administered Dose 25 mcg .ROUTE .STK-MED ONE Stop: 05/28/18 12:32 Last Admin: 05/28/18 12:45 Dose: Not Given - Uterine Contractions Uterine Monitoring Mode: External [place] Contraction Frequency (min): 1.5-3.5 Contraction Duration (sec): 40-70 Contraction Intensity: Mild Uterine Resting Tone: Soft - Monitoring Monitor Mode: External Ultrasound Heart Rate (FHR) Variability: Moderate (6-25 bmp) - Vaginal Exam Dilation (cm): 1.5 Effacement (Percent): 70 Station: Ballot[place] Cervical Position: Midposition Sterile Vaginal Exam Performed By: Caity Banks - Labor Progress (Free Text) Labor Progress: 05/28/2018 Patient has not progressed much after second dose of cytotec, so patient is requesting discharge home. SVE-1-1.5/70/-3 ballotable FHTs category one Patient having no pain Contractions more regular but patient states not feeling them Plan- Will discharge patient home per patient request since no SVE change Patient to return to L&D if labor begins or SROM Patient will return Tuesday for induction if no labor before Discharge home per policy
[2018-05-28 16:55] VITALS: BP 124/60
== END 2018-05-28 16:55 | disposition home or self-care (01) ==
LOC: JP.OB 06:52
PROVIDERS: ADMIT Advanced Practice Midwife; ATTEND Advanced Practice Midwife
DX: O61.9 Failed induction of labor, unspecified (principal); Z3A.40 40 weeks gestation of pregnancy
CPT/HCPCS: 36415; 80305; 81001; 85025; A9270

== ENCOUNTER 2018-06-02 07:19 | Inpatient (IN) | payer BC ==
[2018-06-02] MEDS ORDERED: fentaNYL 100 MCG/2 ML SDV IVPUSH PRN (07:50)
[2018-06-02] MEDS ORDERED: Acetaminophen 325 MG Tab PO PRN (07:50)
[2018-06-02] MEDS ORDERED: Sodium Chloride 0.9% 10 ML Syringe FLUSH PRN (07:50)
[2018-06-02] MEDS ORDERED: Ondansetron 4 MG/2 ML SDV IV PRN (07:50)
--- NOTE | 2018-06-02 08:05 | PCM.LDHP ---
L&D History of Present Illness - General Date of Service: 06/02/18 (Planned induction) Admit Problem/Dx: Patient Status Order with Admit Dx/Problem 06/02/18 07:50 Patient Status [ADT] Routine Admission Diagnosis/Problem Admission Diagnosis/Problem Labor established Source of Information: Patient History Limitations: Reports: No Limitations - History of Present Illness Introduction:: 06/02/18 27 year old is here for planned induction of labor at 40 5/7 weeks gestation. She has felt mild, intermittent contractions only this week. On Tuesday05/28/18 she was here for induction and received cytotec but was sent home with no labor progression. Today she presents /-3. We will start pitocin today. 1 hour glucose was 119. GBS negative. O +. course uncomplicated. Timing/Duration: Reports: minutes: (2-3) Location, : Reports: Abdomen Quality: Reports: Other (tightening, not painful) Severity: Mild Improves with: Reports: None Worsens with: Reports: None Associated Symptoms: Denies: vaginal bleeding, vaginal clots, vaginal discharge , vaginal fluid - Related Data Allergies/Adverse Reactions: Allergies Allergy/AdvReac Type Severity Reaction Status Date / Time No Known Allergies Allergy Verified 07/28/16 07:17 Home Medications: Home Meds Vit Calc,Iron,Folic [ Vitamins] 1 each PO DAILY 07/28/16 [ History] Past Medical History - Past Health History Medical/Surgical History: Denies Medical/Surgical History Genitourinary History: Reports: UTI, Recurrent 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 LMP (Approximate): - Infectious Disease History Infectious Disease History: Reports: Chicken Pox - Past Surgical History Female Surgical History: Reports: None Social & Family History - Family History Family Medical History: Noncontributory - Caffeine Use Caffeine Use: Reports: Soda H&P Review of Systems - Review of Systems: Review Of Systems: See Below General: Reports: No Symptoms HEENT: Reports: No Symptoms Pulmonary: Reports: No Symptoms Cardiovascular: Reports: No Symptoms Gastrointestinal: Reports: No Symptoms Genitourinary: Reports: No Symptoms Musculoskeletal: Reports: No Symptoms Skin: Reports: No Symptoms Psychiatric: Reports: No Symptoms Neurological: Reports: No Symptoms Hematologic/Lymphatic: Reports: No Symptoms Immunologic: Reports: No Symptoms L&D Exam - Exam Exam: See Below - OB Specific Contraction Frequency (min): 2-3 Contraction Intensity: Mild Movement: Active Heart Tones: Present Heart Tones per Min: 120 Heart Rate (FHR) Variability: Moderate (6-25 bmp) Presentation: Vertex Estimated Weight: 8.5# - Michele Score Michele Score Cervix Position: Midposition Michele Score Consistency: Soft Michele Score Effacement: 51-70% Michele Score Dilation: 3-4 cm Michele Score 's Station: -3 Michele Score Total: 7 - Exam Quality Assessment: DVT Prophylaxis (ambulation) General: Alert, Oriented HEENT: PERRLA, Hearing Intact, Mucosa Moist & [place], Pupils Equal, Pupils Reactive Neck: Supple, Trachea Midline Lungs: Clear to Auscultation, Normal Respiratory Effort Cardiovascular: Regular Rate, Regular Rhythm GI/Abdominal Exam: Normal Bowel Sounds, Soft, Non-Tender Rectal Exam: Normal Exam, Normal Rectal Tone Genitourinary: Normal external exam, Cervical dilitation. No: Vaginal bleeding , Vaginal discharge Back Exam: Normal Inspection, Full Range of Motion Extremities: Normal Inspection, Normal Range of Motion, Non-Tender, No Pedal Edema Skin: Warm, Dry, Intact Neurological: Cranial Nerves Intact, Reflexes Equal Bilateral, Normal Gait Psychiatric: Alert, Normal Affect, Normal Mood - Problem List (1) Elective induction of labor planned SNOMED Code(s): 579808582 ICD Code: [id number] - Status: Acute Current Visit: No (2) Intrauterine SNOMED Code(s): 19719492 ICD Code: Z33.1 - STATE, INCIDENTAL Status: Acute Current Visit : No (3) SNOMED Code(s): 77060442 ICD Code: Z33.1 - STATE, INCIDENTAL Status: Acute Current Visit : No Qualifiers: Weeks of gestation: 40 weeks Problem List Initiated/Reviewed/Updated: Yes Orders Last 24hrs: Active Orders 24 hr Category Date Time Status Patient Status [ADT] Routine ADT 06/02/18 07:50 Ordered Communication Order [RC] ASDIRECTED Care 06/02/18 07:50 Ordered Heart Tones [RC] PER UNIT ROUTINE Care 06/02/18 07:50 Ordered Non Stress Test [RC] Click to Edit Care 06/02/18 07:50 Ordered Notify Provider Vital Signs [RC] PRN Care 06/02/18 07:50 Ordered Notify Provider [RC] PRN Care 06/02/18 07:50 Ordered Up ad Katya [RC] ASDIRECTED Care 06/02/18 07:50 Ordered Vital Signs [RC] PER UNIT ROUTINE Care 06/02/18 07:50 Ordered Regular Diet [DIET] Diet 06/02/18 Dinner Ordered CBC WITH AUTO DIFF [HEME] Routine Lab 06/02/18 07:46 Ordered DRUG SCREEN, URINE [URCHEM] Routine Lab 06/02/18 07:46 Ordered UA W/MICROSCOPIC [URIN] Routine Lab 06/02/18 07:46 Ordered Acetaminophen [Tylenol] Med 06/02/18 07:50 Ordered 650 mg PO Q4H PRN Ondansetron [Zofran] Med 06/02/18 07:50 Ordered 4 mg IV Q4H PRN Oxytocin/Normal Saline [Pitocin in NS 20 Units/1,000 ML Med 06/02/18 08:00 Ordered ] 20 unit in 1,000 ml IV TITRATE Sodium Chloride 0.9% [Saline Flush] Med 06/02/18 07:50 Ordered 10 ml FLUSH ASDIRECTED PRN fentaNYL [Sublimaze] Med 06/02/18 07:50 Ordered 100 mcg IVPUSH Q1H PRN Saline Lock Insert [OM.PC] Routine Oth 06/02/18 07:50 Ordered Resuscitation Status Routine Resus Stat 06/02/18 07:50 Ordered Medication Orders Acetaminophen (Tylenol) 650 mg PO Q4H PRN PRN Reason: Pain (Mild 1-3) and fever Fentanyl (Sublimaze) 100 mcg IVPUSH Q1H PRN PRN Reason: Pain (moderate 4-6) Oxytocin/Sodium Chloride (Pitocin In Ns 20 Units/1,000 Ml) 20 unit in 1,000 mls @ 6 mls/hr IV TITRATE EVARISTO; Protocol Ondansetron HCl (Zofran) 4 mg IV Q4H PRN PRN Reason: Nausea/Vomiting Sodium Chloride (Saline Flush) 10 ml FLUSH ASDIRECTED PRN PRN Reason: Keep Vein Open Assessment/Plan Comment:: 06/02/18 27 year old here for planned induction with michele score of 7. Cervix 3/50/ -3. Normal GBS negative O + Mild contractions q 2-3 minutes Rubella immune STI's all negative Proven pelvis up to 9 lbs Plan: Planned vaginal delivery Start pitocin induction/augmentation Up and walking Continuous monitoring while on pitocin Desires no epidural
--- NOTE | 2018-06-02 11:08 | PCM.PNLD ---
Labor Progress Note - VS & Meds Vital Signs: Last Vital Signs Temp 36.5 C 06/02/18 07:46 Pulse 89 06/02/18 07:46 Resp 18 06/02/18 07:46 BP 116/50 L 06/02/18 07:46 Pulse Ox 95 06/02/18 07:46 Active Medications: Current Medications Acetaminophen (Tylenol) 650 mg PO Q4H PRN PRN Reason: Pain (Mild 1-3) and fever Fentanyl (Sublimaze) 100 mcg IVPUSH Q1H PRN PRN Reason: Pain (moderate 4-6) Oxytocin/Sodium Chloride (Pitocin In Ns 20 Units/1,000 Ml) 20 unit in 1,000 mls @ 6 mls/hr IV TITRATE EVARISTO; Protocol Last Titration: 06/02/18 10:30 Dose: 10 munits/min, 30 mls/hr Ondansetron HCl (Zofran) 4 mg IV Q4H PRN PRN Reason: Nausea/Vomiting Sodium Chloride (Saline Flush) 10 ml FLUSH ASDIRECTED PRN PRN Reason: Keep Vein Open - Uterine Contractions Uterine Monitoring Mode: External [place] Contraction Frequency (min): 2-4 Contraction Duration (sec): 20-50 Contraction Intensity: Moderate Uterine Resting Tone: Soft - Monitoring Monitor Mode: External Ultrasound Heart Rate (FHR) Variability: Moderate (6-25 bmp) Accelerations: Present, 15x15 Decelerations: None Strip Review: Category I - Vaginal Exam Dilation (cm): 3 Effacement (Percent): 50 Station: -3 Cervical Position: Midposition Sterile Vaginal Exam Performed By: Wendi Aponte - Labor Progress (Free Text) Labor Progress: 06/02/18 Titrating pitocin Starting to feel her contractions AROM with last vaginal exam, clear fluid Category 1 FHT's
--- NOTE | 2018-06-02 15:43 | PCM.PNLD ---
Labor Progress Note - VS & Meds Vital Signs: Last Vital Signs Temp 36.6 C 06/02/18 13:47 Pulse 89 06/02/18 07:46 Resp 18 06/02/18 13:47 BP 116/50 L 06/02/18 07:46 Pulse Ox 98 06/02/18 13:47 Active Medications: Current Medications Acetaminophen (Tylenol) 650 mg PO Q4H PRN PRN Reason: Pain (Mild 1-3) and fever Fentanyl (Sublimaze) 100 mcg IVPUSH Q1H PRN PRN Reason: Pain (moderate 4-6) Oxytocin/Sodium Chloride (Pitocin In Ns 20 Units/1,000 Ml) 20 unit in 1,000 mls @ 6 mls/hr IV TITRATE EVARISTO; Protocol Last Titration: 06/02/18 13:44 Dose: 14 munits/min, 42 mls/hr Ondansetron HCl (Zofran) 4 mg IV Q4H PRN PRN Reason: Nausea/Vomiting Sodium Chloride (Saline Flush) 10 ml FLUSH ASDIRECTED PRN PRN Reason: Keep Vein Open - Uterine Contractions Uterine Monitoring Mode: External [place] Contraction Frequency (min): 1-3 Contraction Duration (sec): 50-60 Contraction Intensity: Strong Uterine Resting Tone: Soft - Monitoring Monitor Mode: External Ultrasound Heart Rate (FHR) Baseline: 130 Heart Rate (FHR) Variability: Moderate (6-25 bmp) Accelerations: Present, 15x15 Decelerations: None Strip Review: Category I - Vaginal Exam Dilation (cm): 6 Effacement (Percent): 80 Station: -1 Cervical Position: Midposition Sterile Vaginal Exam Performed By: Wendi Aponte - Labor Progress (Free Text) Labor Progress: 06/02/18 Breathing and coping well through contractions Used the tub for pain relief which helped Category 1 tracing
[2018-06-02] MEDS ORDERED: Witch Hazel Medicated Pads 100/Jar TOP PRN (17:00)
[2018-06-02] MEDS ORDERED: Lanolin 100% Cream 40 GM Tube TOP PRN (17:00)
--- NOTE | 2018-06-02 17:12 | PCM.DEL ---
L & D Note - General Info Date of Service: 06/02/18 (Spontaneous Vaginal Delivery) Mother's Due Date: 05/28/18 - Delivery Note Labor: Induced by Oxytocin Delivery Outcome: Livebirth Infant Delivery Method: Spontaneous Vaginal Delivery-Single Delivery Mode: Spontaneous Presentation: Left Occiput Anterior (JEAN MARIE) Nuchal Cord: None Anesthesia Type: Nitrous Oxide Amniotic Fluid Description: Clear Episiotomy Type: None Laceration: None Placenta: Intact, Spontaneous Cord: 3 Vessels Estimated Blood Loss: 150 Resuscitation Needed: No [place]: Stimulated, Warmed, [place] Used Provider: Erica Gomez Score 1 min: 8 Score 5 min: 9 Second Stage Interventions: Reports: Second Nurse Reviewed Heart Tones, Pushing Effectively, Pushing, McRobert's Position Delivery Comments (Free Text/Narrative):: 06/02/18 27 year old at 40 5/7 had a spontaneous vaginal delivery after pitocin induction. at 0442 in JEAN MARIE position Placed on mothers chest at , viable female, needed only stimulation, apgars 8, 9, no nuchal cord, 3 vessel cord Placenta expressed spontaneously intact, no lacerations of vagina or cervix or episiotomy. Vaginal inspection completed. EBL: 150 mL Mother stable in room and baby skin to skin in room 1st stage: 9778-0303 2nd stage: 1980-9020 3rd stage: 8615-6709 Induction Criteria - Michele Score Michele Score Dilation: 3-4 cm Michele Score Effacement: 40-50% Michele Score Infant's Station: -2 Michele Score Consistency: Soft Michele Score Cervix Position: Midposition Michele Score Total: 7 Michele Score Presenting Part: Reports: Cephalic - Induction Gestational Age >/= 39 wks: Yes Estimated Pelvis: Reports: Adequate Reassuring Monitoring Strip: Yes Absence of Tachy Systole: Yes - General Info Date of Service: 06/02/18 Admission Dx/Problem (Free Text): Patient Status Order with Admit Dx/Problem 06/02/18 07:50 Patient Status [ADT] Routine Admission Diagnosis/Problem Admission Diagnosis/Problem Labor established Functional Status: Reports: Pain Controlled - Review of Systems General: Reports: No Symptoms HEENT: Reports: No Symptoms Pulmonary: Reports: No Symptoms Cardiovascular: Reports: No Symptoms Gastrointestinal: Reports: No Symptoms Genitourinary: Reports: No Symptoms Musculoskeletal: Reports: No Symptoms Skin: Reports: No Symptoms Neurological: Reports: No Symptoms Psychiatric: Reports: No Symptoms - Patient Data Vitals - Most Recent: Last Vital Signs Temp 36.6 C 06/02/18 13:47 Pulse 89 06/02/18 07:46 Resp 18 06/02/18 13:47 BP 116/50 L 06/02/18 07:46 Pulse Ox 98 06/02/18 13:47 I&O - Last 24 Hours: Intake & Output 06/02/18 06/02/18 06/02/18 06:59 14:59 22:59 Intake Total 600 Balance 600 Lab Results Last 24 Hours: Laboratory Results - last 24 hr 06/02/18 06/02/18 06/02/18 Range/Units 07:46 07:46 07:54 WBC 9.5 (4.5-11.0) K/uL RBC 4.29 (3.30-5.50) M/uL Hgb 11.5 L (12.0-15.0) g/dL Hct 36.0 (36.0-48.0) % MCV 84 (80-98) fL MCH 27 (27-31) pg MCHC 32 (32-36) % Plt Count 208 (150-400) K/uL Add Manual Diff Yes Neutrophils % (Manual) 56 (36-66) % Band Neutrophils % 2 L (5-11) % Lymphocytes % (Manual) 24 (24-44) % Monocytes % (Manual) 14 H (2-6) % Eosinophils % (Manual) 4 (2-4) % Urine Color Yellow Urine Appearance Cloudy Urine pH 5.0 (4.5-8.0) Ur Specific [place] 1.015 (1.008-1.030) Urine Protein Trace (NEGATIVE) mg/dL Urine Glucose (UA) Normal (NEGATIVE) mg/dL Urine Ketones Negative (NEGATIVE) mg/dL Urine Occult Blood Negative (NEGATIVE) Urine Nitrite Negative (NEGATIVE) Urine Bilirubin Negative (NEGATIVE) Urine Urobilinogen Normal (NORMAL) mg/dL Ur Leukocyte Esterase Negative (NEGATIVE) Urine RBC 0-5 (0-5) Urine WBC 0-5 (0-5) Ur Epithelial Cells Many Amorphous Sediment Not seen Urine Bacteria Many Urine Mucus Not seen Urine Opiates Screen Negative (NEGATIVE) Ur Oxycodone Screen Negative (NEGATIVE) Urine Methadone Screen Negative (NEGATIVE) Ur Propoxyphene Screen Negative (NEGATIVE) Ur Barbiturates Screen Negative (NEGATIVE) Ur Tricyclics Screen Negative (NEGATIVE) Ur Phencyclidine Scrn Negative (NEGATIVE) Ur Amphetamine Screen Negative (NEGATIVE) U Methamphetamines Scrn Negative (NEGATIVE) Urine MDMA Screen Negative (NEGATIVE) U Benzodiazepines Scrn Negative (NEGATIVE) U Cocaine Metab Screen Negative (NEGATIVE) U Marijuana (THC) Screen Negative (NEGATIVE) Med Orders - Current: Current Medications Acetaminophen (Tylenol) 650 mg PO Q4H PRN PRN Reason: Pain (Mild 1-3) and fever Fentanyl (Sublimaze) 100 mcg IVPUSH Q1H PRN PRN Reason: Pain (moderate 4-6) Oxytocin/Sodium Chloride (Pitocin In Ns 20 Units/1,000 Ml) 20 unit in 1,000 mls @ 6 mls/hr IV TITRATE EVARISTO; Protocol Last Titration: 06/02/18 13:44 Dose: 14 munits/min, 42 mls/hr Ondansetron HCl (Zofran) 4 mg IV Q4H PRN PRN Reason: Nausea/Vomiting Sodium Chloride (Saline Flush) 10 ml FLUSH ASDIRECTED PRN PRN Reason: Keep Vein Open - Exam General: Alert, Oriented HEENT: Pupils Equal, Pupils Reactive, EOMI, Mucous Membr. Moist/[place] Neck: Supple Lungs: Clear to Auscultation, Normal Respiratory Effort Cardiovascular: Regular Rate, Regular Rhythm GI/Abdominal Exam: Normal Bowel Sounds, Soft, Non-Tender, No Organomegaly, No Distention, No Abnormal Bruit, No Mass, Pelvis Stable (Female) Exam: Normal External Exam, Cervical Dilatation, Enlarged Uterus, Vaginal Bleeding. No: Vaginal Lesions, Vaginal Tears Back Exam: Normal Inspection, Full Range of Motion Extremities: Normal Inspection, Normal Range of Motion, Non-Tender, No Pedal Edema, Normal Capillary Refill Skin: Warm, Dry, Intact Neurological: No New Focal Deficit Psy/Mental Status: Alert, Normal Affect, Normal Mood - Problem List & Annotations (1) Elective induction of labor planned SNOMED Code(s): 893499980 Code(s): BLS0336 - Status: Acute Current Visit: No (2) Intrauterine SNOMED Code(s): 15279854 Code(s): Z33.1 - STATE, INCIDENTAL Status: Acute Current Visit: No (3) SNOMED Code(s): 13150313 Code(s): Z33.1 - STATE, INCIDENTAL Status: Acute Current Visit: No Qualifiers: Weeks of gestation: 40 weeks (4) Normal labor and delivery SNOMED Code(s): 13608957, 26309505 Code(s): O80 - ENCOUNTER FOR FULL-TERM UNCOMPLICATED DELIVERY Status: Acute Current Visit: No (5) Normal vaginal delivery SNOMED Code(s): 62197357 Code(s): O80 - ENCOUNTER FOR FULL-TERM UNCOMPLICATED DELIVERY Status: Acute Current Visit: No - Problem List Review Problem List Initiated/Reviewed/Updated: Yes - My Orders Last 24 Hours: My Active Orders 06/02/18 07:50 Communication Order [RC] ASDIRECTED Heart Tones [RC] PER UNIT ROUTINE Non Stress Test [RC] Click to Edit Notify Provider Vital Signs [RC] PRN Notify Provider [RC] PRN Up ad Katya [RC] ASDIRECTED Vital Signs [RC] PER UNIT ROUTINE Acetaminophen [Tylenol] 650 mg PO Q4H PRN Ondansetron [Zofran] 4 mg IV Q4H PRN Sodium Chloride 0.9% [Saline Flush] 10 ml FLUSH ASDIRECTED PRN fentaNYL [Sublimaze] 100 mcg IVPUSH Q1H PRN Saline Lock Insert [OM.PC] Routine Resuscitation Status Routine 06/02/18 08:00 Oxytocin/Normal Saline [Pitocin in NS 20 Units/1,000 ML] 20 unit in 1,000 ml IV TITRATE 06/02/18 17:00 Patient Status [ADT] Routine May Shower [RC] ASDIRECTED Vital Signs [RC] PFP 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 [CONS] Routine Lanolin [Lansinoh HPA] 1 gm TOP ASDIRECTED PRN Witch Lisa [Tucks] 1 pad TOP ASDIRECTED PRN Assess Lochia [WOMSER] Per Unit Routine Assess Uterine Involution [WOMSER] Per Unit Routine Breast Pump [WOMSER] Per Unit Routine 06/02/18 17:01 Ice Therapy [OM.PC] Per Unit Routine Perineal Care [OM.PC] Per Unit Routine 06/02/18 17:02 Sitz Bath [OM.PC] Per Unit Routine 06/02/18 Dinner Regular Diet [DIET] 06/03/18 05:11 CBC WITH AUTO DIFF [HEME] AM - Assessment Assessment:: 06/02/18 27 year old by induction No complications - Plan Plan:: 06/02/18 27 year old here for planned induction with michele score of 7. Cervix 3/50/ -3. Normal GBS negative O + Mild contractions q 2-3 minutes Rubella immune STI's all negative Proven pelvis up to 9 lbs Plan: Planned vaginal delivery Start pitocin induction/augmentation Up and walking Continuous monitoring while on pitocin Desires no epidural 06/02/18 Plans to breastfeed Routine cares CBC in am 24-48 hour stay
[2018-06-02] MEDS ORDERED: Ibuprofen 200 MG Tab, 24 Tab Bulk Bottle PO PRN (17:15)
[2018-06-02] MEDS ORDERED: Acetaminophen 325 MG Tab, 50 Tab Bulk Bottle PO PRN (17:15)
[2018-06-02] MEDS ORDERED: Acetaminophen/HYDROcodone 325-5 MG Tab PO PRN (17:16)
--- NOTE | 2018-06-03 10:30 | PCM.PNPP ---
- General Info Date of Service: 06/03/18 (Date of discharge) Functional Status: Reports: Pain Controlled - Review of Systems General: Reports: No Symptoms HEENT: Reports: No Symptoms Pulmonary: Reports: No Symptoms Cardiovascular: Reports: No Symptoms Gastrointestinal: Reports: No Symptoms Genitourinary: Reports: No Symptoms Musculoskeletal: Reports: No Symptoms Skin: Reports: No Symptoms Neurological: Reports: No Symptoms Psychiatric: Reports: No Symptoms - General Info Date of Service: 06/03/18 - Patient Data Vital Signs - Most Recent: Last Vital Signs Temp 36.7 C 06/03/18 07:00 Pulse 92 06/03/18 07:00 Resp 18 06/03/18 07:00 BP 136/59 L 06/03/18 07:00 Pulse Ox 98 06/03/18 07:00 I&O - Last 24 Hours: Intake & Output 06/02/18 06/03/18 06/03/18 22:59 06:59 14:59 Intake Total 500 1000 1136 Balance 500 1000 1136 Lab Results - Last 24 Hours: Laboratory Results - last 24 hr 06/03/18 Range/Units 04:56 WBC 10.9 (4.5-11.0) K/uL RBC 4.15 (3.30-5.50) M/uL Hgb 11.3 L (12.0-15.0) g/dL Hct 35.0 L (36.0-48.0) % MCV 84 (80-98) fL MCH 27 (27-31) pg MCHC 32 (32-36) % Plt Count 202 (150-400) K/uL Neut % (Auto) 69 H (36-66) % Lymph % (Auto) 19 L (24-44) % Mcculloch % (Auto) 10 H (2-6) % Eos % (Auto) 2 (2-4) % Baso % (Auto) 1 (0-1) % Med Orders - Current: Current Medications Acetaminophen (Tylenol) 650 mg PO Q4H PRN PRN Reason: Pain (Mild 1-3) and fever Acetaminophen (Tylenol Bulk Bottle) 325 - 650 mg PO Q4H PRN PRN Reason: Pain Hydrocodone Bitart/Acetaminophen (Ramsay 325-5 Mg) 1 tab PO Q6H PRN PRN Reason: Abdominal Pain Emollient Ointment (Lansinoh Hpa) 0 gm TOP ASDIRECTED PRN PRN Reason: Sore Nipples Fentanyl (Sublimaze) 100 mcg IVPUSH Q1H PRN PRN Reason: Pain (moderate 4-6) Oxytocin/Sodium Chloride (Pitocin In Ns 20 Units/1,000 Ml) 20 unit in 1,000 mls @ 6 mls/hr IV TITRATE EVARISTO; Protocol Last Titration: 06/02/18 13:44 Dose: 14 munits/min, 42 mls/hr Ibuprofen (Motrin Bulk Bottle) 600 mg PO Q6H PRN PRN Reason: Pain Ondansetron HCl (Zofran) 4 mg IV Q4H PRN PRN Reason: Nausea/Vomiting Sodium Chloride (Saline Flush) 10 ml FLUSH ASDIRECTED PRN PRN Reason: Keep Vein Open Witch Lisa (Tucks) 1 pad TOP ASDIRECTED PRN PRN Reason: Hemorrhoids - Infant Interaction Disposition, : in Room with Family Infant Interaction: Holding Feeding: Bottle Fed Support Person: - Recovery Exam Fundal Tone: Firm Fundal Level: 1 Fingerbreadths Below Umbilicus Fundal Placement: Left Lochia Amount: Small Lochia Color: Rubra/Red Perineum Description: Intact, Minimal Bruising/Swelling Episiotomy/Laceration: None Bladder Status: Voiding Urinary Elimination: Voided - Exam General: Alert, Oriented HEENT: Pupils Equal Neck: Supple Lungs: Clear to Auscultation, Normal Respiratory Effort Cardiovascular: Regular Rate, Regular Rhythm GI/Abdominal Exam: Normal Bowel Sounds, Soft, Non-Tender, No Organomegaly, No Distention, No Abnormal Bruit, No Mass, Pelvis Stable Extremities: Normal Inspection, Normal Range of Motion, Non-Tender, No Pedal Edema, Normal Capillary Refill Skin: Warm, Dry, Intact Neurological: No New Focal Deficit Psy/Mental Status: Alert, Normal Affect, Normal Mood - Problem List & Annotations (1) Elective induction of labor planned SNOMED Code(s): 939396241 Code(s): GLJ9592 - Status: Acute Current Visit: No (2) Intrauterine SNOMED Code(s): 06642508 Code(s): Z33.1 - STATE, INCIDENTAL Status: Acute Current Visit: No (3) SNOMED Code(s): 36788934 Code(s): Z33.1 - STATE, INCIDENTAL Status: Acute Current Visit: No Qualifiers: Weeks of gestation: 40 weeks (4) Normal labor and delivery SNOMED Code(s): 04417550, 09730400 Code(s): O80 - ENCOUNTER FOR FULL-TERM UNCOMPLICATED DELIVERY Status: Acute Current Visit: No (5) Normal vaginal delivery SNOMED Code(s): 82778187 Code(s): O80 - ENCOUNTER FOR FULL-TERM UNCOMPLICATED DELIVERY Status: Acute Current Visit: No - Problem List Review Problem List Initiated/Reviewed/Updated: Yes - My Orders Last 24 Hours: My Active Orders 06/02/18 17:00 Patient Status [ADT] Routine May Shower [RC] ASDIRECTED Consult to Scientific Software Developer [CONS] Routine Lanolin [Lansinoh HPA] 0 gm TOP ASDIRECTED PRN Witch Lisa [Tucks] 1 pad TOP ASDIRECTED PRN Assess Lochia [WOMSER] Per Unit Routine Assess Uterine Involution [WOMSER] Per Unit Routine Breast Pump [WOMSER] Per Unit Routine 06/02/18 17:01 Ice Therapy [OM.PC] Per Unit Routine Perineal Care [OM.PC] Per Unit Routine 06/02/18 17:02 Sitz Bath [OM.PC] Per Unit Routine 06/02/18 17:15 Acetaminophen [Tylenol Bulk Bottle] 325 - 650 mg PO Q4H PRN Ibuprofen [Motrin Bulk Bottle] 600 mg PO Q6H PRN 06/02/18 17:16 Acetaminophen/HYDROcodone [Ramsay 325-5 MG] 1 tab PO Q6H PRN 06/02/18 Dinner Regular Diet [DIET] 06/03/18 10:22 Ready for Discharge [RC] PER UNIT ROUTINE - Assessment Assessment:: 06/02/18 27 year old by induction No complications 06/02/18 27 year old who delivered vaginally yesterday over an intact perineum Denies pain Bleeding light without clots Desires discharge today Normal course, uneventful Hgb stable at 11.3 mg/dL - Plan Plan:: 06/02/18 27 year old here for planned induction with michele score of 7. Cervix 3/50/ -3. Normal GBS negative O + Mild contractions q 2-3 minutes Rubella immune STI's all negative Proven pelvis up to 9 lbs Plan: Planned vaginal delivery Start pitocin induction/augmentation Up and walking Continuous monitoring while on pitocin Desires no epidural 06/02/18 Plans to bottle feed Routine cares CBC in am 24-48 hour stay 06/02/18 Discharge home today when 24 hours Continue cares home education mood check at 2 weeks with nursing 6 week follow up
[2018-06-03 11:10] VITALS: BP 120/54
== END 2018-06-03 17:40 | disposition home or self-care (01) | DRG 560 ==
LOC: JP.OB 07:19 → OBSVTOIN 16:42 → JP.MS 19:28
PROVIDERS: ADMIT Nurse Practitioner Family; ATTEND Nurse Practitioner Family
PROC: 10E0XZZ Delivery of Products of Conception, External Approach (ICD-10-PCS; principal; 2018-06-02)
PROC: 3E033VJ Introduction of Other Hormone into Peripheral Vein, Percutaneous Approach (ICD-10-PCS; principal; 2018-06-02)
PROC: 10907ZC Drainage of Amniotic Fluid, Therapeutic from Products of Conception, Via Natural or Artificial Opening (ICD-10-PCS; principal; 2018-06-02)
DX: O80 Encounter for full-term uncomplicated delivery (principal); Z3A.40 40 weeks gestation of pregnancy; Z37.0 Single live birth; Z67.40 Type O blood, Rh positive
CPT/HCPCS: 36415; 59409; 80305-QW; 81001; 85025; 99211; A9270-GY; J2590